=== PATIENT | male | born 1990 | race Caucasian/White ===

== ENCOUNTER 2021-01-01 10:57 | Emergency (ER) | payer OTHER ==
[2021-01-01 12:57] LABS: ALT (SGPT) 35 U/L (8-55); AST (SGOT) 35 U/L (5-34); Albumin 4.1 g/dL (3.5-5.0); Alkaline Phosphatase 79 U/L (40-110); Anion Gap 16 mmol/L (10-20); BUN (Urea Nitrogen) 8 mg/dL (8.9-20.6); Bilirubin, Total 0.6 mg/dL (0.2-1.2); Calc. Creatinine Clearance 0 mL/min (70-130); Calcium 9.2 mg/dL (7.8-10.44); Carbon Dioxide 21 mmol/L (22-29); Chloride 104 mmol/L (98-107); Globulin 4.6 g/dL (2.4-3.5); Glucose 104 mg/dL (70-105); Protein, Total 8.7 g/dL (6.0-8.3); Sodium 137 mmol/L (136-145)
[2021-01-01 13:11] LABS: Hemoglobin 13.4 g/dL (13.5-17.5); Mean Corpuscular HGB CONC 32.8 g/dL (32.0-36.0); Mean Corpuscular Hemoglobin 29.1 pg (27.0-33.0); Mean Corpuscular Volume 88.7 fl (81.2-95.1); Mean Platelet Volume 11.1 fl (7.4-10.4); Platelet Count 250 10x3/uL (150-450); White Blood Cell (WBC) Count 11.6 10x3/uL (3.5-10.5)
[2021-01-01] MEDS ORDERED: cefTRIAXone\\ROCEPHIN 2 GM VIAL ONE (13:26)
[2021-01-01 13:33] LABS: MDiff Complete? YES; Manual Diff?? YES
[2021-01-01 13:39] LABS: Band 33 % (5-11); Lymphocytes 6 % (21-51); Monocytes 15 % (0-10); Neutrophil 44 % (42-75); Reactive Lymphocytes 1 % (0-10)
[2021-01-01] MEDS ORDERED: Azithromycin 500 MG VIAL ONE (13:54)
[2021-01-01 17:26] LABS: SARS-CoV-2 NAA Rapid Test Not Detected (NotDetected)
== END 2021-01-01 15:10 | disposition home or self-care (01) ==
LOC: CSHERS 10:57
DX: J18.9 Pneumonia, unspecified organism (principal); Z20.822 Contact with and (suspected) exposure to COVID-19; M06.9 Rheumatoid arthritis, unspecified; Z79.899 Other long term (current) drug therapy; F17.200 Nicotine dependence, unspecified, uncomplicated
CPT/HCPCS: 0240U; 71045; 80053; 85025; 96365; 96367; J0456; J0696